=== PATIENT | female | born 1990 | race Caucasian/White ===

== ENCOUNTER 2016-11-08 08:00 | Inpatient (IN) | payer OTHER ==
[~2016-11-08] VITALS: Ht 154.9 cm; Wt 70.9 kg
[2016-11-08] MEDS ORDERED: IBUPROFEN 600 MG TAB PO PRN (10:00)
[2016-11-08] MEDS ORDERED: METHYLERGONOVINE 0.2 MG INJ IM PRN (10:00)
[2016-11-08] MEDS ORDERED: CARBOPROST 250 MCG INJ IM PRN (10:00)
[2016-11-08] MEDS ORDERED: OXYTOCIN 30 UNITS/LR 500 ML IV SCH ×3 (10:00→12:00)
[2016-11-08] MEDS ORDERED: OXYTOCIN 30 UNITS/LR 500 ML IV PRN (10:00)
[2016-11-08] MEDS ORDERED: ACETAMINOPHEN/CODEINE #3 TAB PO PRN (10:00)
[2016-11-08] MEDS ORDERED: MISOPROSTOL 200 MCG TAB PR PRN (10:00)
[2016-11-08] MEDS ORDERED: BUTORPHANOL 2 MG INJ IV PRN (10:00)
[2016-11-08] MEDS ORDERED: LIDOCAINE 1% (MPF) 30 ML INJ INJ PRN (10:00)
[2016-11-08] MEDS: LACTATED RINGER'S 1,000 ML IV SCH ×2 (10:51→18:14)
[2016-11-08 11:17] VITALS: BP 110/67; PULSE 90; RESP 18
[2016-11-08 11:20] VITALS: Ht 154.9 cm; Wt 70.9 kg
[2016-11-08 11:27] LABS: BASOPHILS % 0.2 % (0.0-2.0); EOSINOPHILS % 0.1 % (0.0-7.0); HEMATOCRIT 32.2 % (37.0-47.0); HEMOGLOBIN 10.6 g/dl (12.0-16.0); LYMPHOCYTES # 2.1 10^3/ul (0.8-2.9); LYMPHOCYTES % 23.5 % (15.0-51.0); MEAN CORPUSCULAR HEMOGLOBIN 25.3 pg (29.0-33.0); MEAN CORPUSCULAR VOLUME 76.5 fl (82.0-101.0); MEAN PLATELET VOLUME 9.6 fl (7.4-10.4); MONOCYTE # 0.5 10^3/ul (0.3-0.9); MONOCYTES % 5.5 % (0.0-11.0); NEUTROPHIL # 6.3 10^3/ul (1.6-7.5); NEUTROPHILS % 70.7 % (39.0-77.0); PLATELET COUNT 239 10^3/UL (140-440); RED BLOOD COUNT 4.21 10^6/ul (4.20-5.40); RED CELL DISTRIBUTION WIDTH 17.3 % (11.5-14.5); UNCORRECTED WBC 8.9 10^3/ul (4.8-10.8); WHITE BLOOD COUNT 8.9 10^3/ul (4.8-10.8)
[2016-11-08 11:31] LABS: CONDITION 1; LH ANALYZER COMMENTS 1
[2016-11-08 11:37] LABS: INR 0.9; PROTIME 12.1 Sec (12.2-14.2); PT RATIO 0.9
[2016-11-08 11:38] LABS: PARTIAL THROMBOPLASTIN TIME 28.3 Sec (25.0-35.0)
[2016-11-08] MEDS ORDERED: LACTATED RINGER'S 1,000 ML IV PRN (12:00)
[2016-11-08] MEDS ORDERED: PRENAT PO (15:48)
[2016-11-08] MEDS ORDERED: FENTAnyl 2MCG/ML-ROPIV 0.2% 100 ML ONE (22:07)
[2016-11-08] MEDS ORDERED: FENTAnyl 2MCG/ML-ROPIV 0.2% 100 ML BAG EPI SCH (23:00)
[2016-11-08] MEDS ORDERED: NALOXONE (0.4 MG/ML) INJ IV PRN (23:00)
--- NOTE | 2016-11-08 23:09 | HP ---
Date/Time of Note Date/Time of Note DATE: 11/08/16 TIME: 23:06 OB - History Hx of Present Chief Complaint: Scheduled induction Estimated Due Date: Nov 10, 2016 : 3 Para: 1 Spontaneous : 1 Therapeutic : 0 Care: Good Care Ultrasounds: Normal mid trimester US Obstetrical Complications: None Medical Complications: None Past Family/Social History * Past Medical, Surgical, Family and Obstetric Histories reviewed from chart. GBS Status: Negative OB Admission Exam Vital Signs Vital Signs Vital Signs Date Time Temp Pulse Resp B/P Pulse Ox O2 Delivery O2 Flow Rate FiO2 11/08/16 11:17 98.5 90 18 110/67 Room Air Physical Exam HEENT: WNL Heart: Rhythm Normal Lungs: Clear Abdomen: WNL Extremities: Normal Reflexes: Normal Cervical Dilatation: 2cm Effacement: 50% Station: -1 Membranes: Intact Heart Rate: 140's Accelerations: Accelerations Present Decelerations: No Decelerations Varibility: Moderate Last 72 hours Lab Results CBC & BMP 11/08/16 10:50 OB Assessment/Plan Reason for admission: induction of labor Plan: Induction Induction Method: per Pitocin Protocol GERALDINE BURRIS MD Nov 08, 2016 23:09
--- NOTE | 2016-11-09 00:36 | LDN ---
Date/Time of Note Date/Time of Note DATE: 11/09/16 TIME: 00:33 Delivery Summary over intact perineum Placenta Delivered: Spontaneously Meconium: none Perineum intact?: No (Please specify) Perineal laceration: 2 Perineal laceration repair: Second degree perineal laceration repaired with 3-0 Vicryl. Anesthesia type: Epidural Estimated blood loss: 300 Sponge & Needle done & correct: Yes All needle counts correct: Yes Any foreign bodies felt in the: No Problems: Delivery Information Sex Sex: female Apgars 1 Minute: 8 5 Minute: 9 Suctioning Nose & mouth suctioned at marco: Yes Delee suction performed: No Umbilical Cord Umbilical cord with: 3 Vessels Cord presentations: nuchal cord Nuchal cord present X: 1 Cord Blood was obtained: Yes Mother & Baby Disposition Disposition Mom & Baby to Maternity; Good: Yes GERALDINE BURRIS MD Nov 09, 2016 00:36
[2016-11-09] MEDS ORDERED: morphine 10 MG INJ ONE (01:26)
[2016-11-09] MEDS ORDERED: morphine 10 MG INJ IV ONE (01:30)
[2016-11-09 02:09] LABS: BASOPHILS % 0.2 % (0.0-2.0); EOSINOPHILS % 0.1 % (0.0-7.0); HEMATOCRIT 35.8 % (37.0-47.0); HEMOGLOBIN 11.7 g/dl (12.0-16.0); LYMPHOCYTES # 1.8 10^3/ul (0.8-2.9); LYMPHOCYTES % 9.7 % (15.0-51.0); MEAN CORPUSCULAR HEMOGLOBIN 24.9 pg (29.0-33.0); MEAN CORPUSCULAR HGB CONC 32.7 g/dl (32.0-37.0); MEAN CORPUSCULAR VOLUME 76.3 fl (82.0-101.0); MEAN PLATELET VOLUME 9.4 fl (7.4-10.4); MONOCYTE # 0.6 10^3/ul (0.3-0.9); MONOCYTES % 3.4 % (0.0-11.0); NEUTROPHILS % 86.6 % (39.0-77.0); PLATELET COUNT 240 10^3/UL (140-440); RED BLOOD COUNT 4.69 10^6/ul (4.20-5.40); RED CELL DISTRIBUTION WIDTH 17.3 % (11.5-14.5); UNCORRECTED WBC 18.5 10^3/ul (4.8-10.8); WHITE BLOOD COUNT 18.5 10^3/ul (4.8-10.8)
[2016-11-09 02:18] LABS: CONDITION 1; LH ANALYZER COMMENTS 1
[2016-11-09] MEDS ORDERED: CEFAZOLIN 2 GM/50 ML (PMX) 50 ML IVPB ONE ×2 (02:30→02:32)
[2016-11-09 03:20] VITALS: BP 128/81; PULSE 72; RESP 18
[2016-11-09] MEDS ORDERED: ACETAMINOPHEN 325 MG TAB PO PRN (03:30)
[2016-11-09] MEDS ORDERED: OXYTOCIN 30 UNITS/LR 500 ML IV PRN (03:30)
[2016-11-09] MEDS ORDERED: METHYLERGONOVINE 0.2 MG INJ IM PRN (03:30)
[2016-11-09] MEDS ORDERED: CARBOPROST 250 MCG INJ IM PRN (03:30)
[2016-11-09] MEDS ORDERED: DIBUCAINE 1% 30 GM OINT PR PRN (03:30)
[2016-11-09] MEDS ORDERED: MISOPROSTOL 200 MCG TAB PR PRN (03:30)
[2016-11-09] MEDS ORDERED: ACETAMINOPHEN/CODEINE #3 TAB PO PRN (03:30)
[2016-11-09] MEDS: LACTATED RINGER'S 1,000 ML IV* SCH ×3 (04:26→19:16)
[2016-11-09] MEDS: BENZOCAINE 20% 56 ML SPRAY TOP PRN (05:40)
[2016-11-09] MEDS: WITCH HAZEL/GLYCERIN PAD PR PRN (05:40)
[2016-11-09] MEDS: IBUPROFEN 600 MG TAB PO SCH ×3 (05:40→17:30)
[2016-11-09] MEDS ORDERED: OXYTOCIN 30 UNITS/LR 500 ML BAG IV ONE (07:00)
[2016-11-09] MEDS ORDERED: CARBOPROST 250 MCG INJ ONE (07:00)
[2016-11-09] MEDS ORDERED: METHYLERGONOVINE 0.2 MG INJ ONE (07:00)
[2016-11-09 08:40] VITALS: BP 118/72; PULSE 84; RESP 17
[2016-11-09] MEDS: SENNA/DOCUSATE NA (8.6MG/50MG) TAB PO SCH (09:51)
[2016-11-09 12:00] VITALS: BP 112/57; RESP 17
[2016-11-09 16:15] VITALS: BP 104/66; PULSE 83; RESP 17
[2016-11-09 20:00] VITALS: BP 99/51; PULSE 87; RESP 16
[2016-11-10] MEDS: IBUPROFEN 600 MG TAB PO SCH ×5 (00:43→23:24)
[2016-11-10] MEDS: SENNA/DOCUSATE NA (8.6MG/50MG) TAB PO SCH ×3 (00:43→23:24)
[2016-11-10] MEDS: LACTATED RINGER'S 1,000 ML IV* SCH (02:48)
[2016-11-10 04:00] VITALS: BP 111/58; PULSE 63; RESP 20
[2016-11-10 08:00] VITALS: BP 119/58; PULSE 75; RESP 18
[2016-11-10 09:22] LABS: BASOPHILS % 0.3 % (0.0-2.0); EOSINOPHILS % 0.5 % (0.0-7.0); HEMATOCRIT 30.6 % (37.0-47.0); HEMOGLOBIN 9.8 g/dl (12.0-16.0); LYMPHOCYTES # 2.7 10^3/ul (0.8-2.9); MEAN CORPUSCULAR HEMOGLOBIN 24.8 pg (29.0-33.0); MEAN CORPUSCULAR HGB CONC 32.1 g/dl (32.0-37.0); MEAN CORPUSCULAR VOLUME 77.2 fl (82.0-101.0); MEAN PLATELET VOLUME 9.5 fl (7.4-10.4); MONOCYTE # 0.6 10^3/ul (0.3-0.9); NEUTROPHIL # 5.6 10^3/ul (1.6-7.5); NEUTROPHILS % 62.2 % (39.0-77.0); PLATELET COUNT 234 10^3/UL (140-440); RED BLOOD COUNT 3.97 10^6/ul (4.20-5.40); RED CELL DISTRIBUTION WIDTH 17.3 % (11.5-14.5); UNCORRECTED WBC 8.9 10^3/ul (4.8-10.8); WHITE BLOOD COUNT 8.9 10^3/ul (4.8-10.8)
[2016-11-10 09:34] LABS: CONDITION 1; LH ANALYZER COMMENTS 1
[2016-11-10 16:00] VITALS: BP 137/73; PULSE 77; RESP 18
--- NOTE | 2016-11-10 19:55 | DS ---
Date/Time of Note Date/Time of Note DATE: 11/10/16 TIME: 19:54 Obstetrical Discharge Record Final Diagnosis Final Diagnosis: Term delivered Vaginal Delivery Obstetrical Delivery: Spontaneous Condition on Discharge Physical Assessment Voiding: Yes Bowel Movement: Yes Breast: Soft, non-tender Fundus: Firm Calf Tenderness: No Patient Condition: Stable GERALDINE BURRIS MD Nov 10, 2016 19:55
[2016-11-10 20:00] VITALS: BP 132/77; PULSE 70; RESP 18
[2016-11-11 04:00] VITALS: BP 133/60; PULSE 71; RESP 20
[2016-11-11] MEDS: IBUPROFEN 600 MG TAB PO SCH ×3 (06:34→17:17)
[2016-11-11 08:10] VITALS: BP 130/60; PULSE 72; RESP 19
[2016-11-11] MEDS: SENNA/DOCUSATE NA (8.6MG/50MG) TAB PO SCH (08:56)
[2016-11-11] MEDS: WITCH HAZEL/GLYCERIN PAD PR PRN (08:56)
[2016-11-11] MEDS: BENZOCAINE 20% 56 ML SPRAY TOP PRN (08:56)
[2016-11-11] MEDS ORDERED: DIPHTH/TET/ACEL PERTUSS (ADULT) 0.5 ML VIAL IM* ONE (09:00)
[2016-11-11 17:18] VITALS: BP 129/66; PULSE 69; RESP 19
== END 2016-11-11 18:27 | disposition home or self-care (01) | DRG 775 ==
LOC: L-D 09:26 → PP1 11-09 03:20
PROVIDERS: ADMIT Obstetrics & Gynecology; ATTEND Obstetrics & Gynecology
PROC: 10E0XZZ Delivery of Products of Conception, External Approach (ICD-10-PCS; principal; 2016-11-09)
PROC: 0KQM0ZZ Repair Perineum Muscle, Open Approach (ICD-10-PCS; 2016-11-09)
DX: O70.1 Second degree perineal laceration during delivery (principal); Z37.0 Single live birth; O69.81X0 Labor and delivery complicated by cord around neck, without compression, not applicable or unspecified; Z3A.39 39 weeks gestation of pregnancy
CPT/HCPCS: 62319; 85025; 85610; 85730; 86592; 86850; 86900; 86901; 86920; 90715; J0690; J2210; J2270; J2590; J3010; J7120